=== PATIENT | female | born 1950 | race Two or more races ===

== ENCOUNTER 2023-07-26 11:47 | Emergency (ER) | payer OTHER ==
[~2023-07-26] VITALS: Ht 154.9 cm; Wt 59.0 kg
[2023-07-26] MEDS ORDERED: TETANUS & DIPHTHERIA TOX,ADULT 0.5 ML VIAL IM STA (14:18)
[2023-07-26] MEDS ORDERED: DUI500 PO (14:50)
== END 2023-07-26 14:59 | disposition home or self-care (01) ==
LOC: ER 11:47
DX: S69.81XA Other specified injuries of right wrist, hand and finger(s), initial encounter (principal); W45.8XXA Other foreign body or object entering through skin, initial encounter; Y93.89 Activity, other specified; Y92.89 Other specified places as the place of occurrence of the external cause; Y99.8 Other external cause status; E03.8 Other specified hypothyroidism; Z88.0 Allergy status to penicillin; Z88.6 Allergy status to analgesic agent